=== PATIENT | male | born 1985 | race Caucasian/White ===

== ENCOUNTER 2020-01-11 19:14 | Emergency (ER) | payer OTHER, SELFPAY ==
[2020-01-11 19:10] VITALS: BP 145/109; PULSE 66; RESP 18; TEMP 37.3; O2SAT 94
--- NOTE | 2020-01-11 19:17 | ED.NAVMDI ---
HPI - Nausea/Vomiting/Diarrhea General Chief complaint: Nausea/Vomiting/Diarrhea Stated complaint: n/v History of Present Illness HPI Narrative: 34 yo male w/ h/o anxiety and depression BIBEMS for nausea and vomiting. He reports that he has been drinking heavily recently. He drinks most days. Frequently nearly 1/5 of liquor. He was drinking yesterday more heavily than usual and has been vomiting throughout the day today. The most recent episode of vomiting did include a small quantitiy of blood. He ia also feeling shakey and is concerned that he may be going into alcohol withdrawal. He has no h/o alcohol withdrawal. No abdominal pain, diarrhea, fever, weakness, SOB, dark stools. Related Data Home Medications Medication Instructions Recorded Confirmed buspirone mg 01/11/20 fluoxetine [Prozac] 10 mg PO DAILY 01/11/20 vortioxetine [Trintellix] 20 mg PO DAILY 01/11/20 Allergies Allergy/AdvReac Type Severity Reaction Status Date / Time sulfamethizole Allergy Unknown Nausea Verified 01/11/20 19:17 Review of Systems Review of Systems: All systems reviewed & are unremarkable except as noted in HPI and below Constitutional: Constitutional: Denies chills and Denies fever(s) ENT: Denies sore throat Cardiovascular: Cardiovascular: Denies chest pain Respiratory: Respiratory: Denies dyspnea Gastrointestinal: Gastrointestinal: Denies abdominal pain, Denies diarrhea, Reports nausea and Reports vomiting Musculoskeletal: Musculoskeletal: Denies back pain Neurologic: Denies syncope and Reports weakness Psychiatric: Psychiatric: Reports anxiety and Reports depression [facility] Past Medical History Medical History Anxiety Depression Family History Family History Father Malignant neoplasm of prostate, Onset Age: 50 Other Family history of cardiovascular disease Social History Social History Smoking status: Smoker, status unknown Alcohol intake: current Exam Const: General: healthy appearing, no acute distress and alert Orientation/consciousness: patient oriented x3 HENMT: Mouth: Yes dry mucous membranes Neck: Neck: normal visual inspection and no lymphadenopathy Chest: Chest palpation & inspection: no tenderness Resp: Effort & Inspection: normal respiratory effort Auscultation: clear to auscultation bilaterally, no rales, no rhonchi and no wheezes Cardio: Jugular venous distension: no JVD Rate: bradycardic Rhythm: regular rhythm Heart sounds: no murmurs GI: Inspection: non-distended GI Palp: Yes Soft to palpation and No Tenderness to palpation present (GI) Skin: General skin exam: normal color Neuro: General: patient oriented x3 and moves all extremities Speech: normal speech Other: mildly tremulous Extrem: General: no edema Psych: Appearance: well kempt Affect: normal affect Course Vital Signs Vital signs: Vital Signs Temperature 37.3 C 01/11/20 19:10 Pulse Rate 66 01/11/20 19:10 Respiratory Rate 18 01/11/20 19:10 Blood Pressure 145/109 H 01/11/20 19:10 Pulse Oximetry 94 01/11/20 19:10 Temperature 37.3 C 01/11/20 19:10 Pulse Rate 64 01/11/20 22:39 Respiratory Rate 21 H 01/11/20 22:39 Blood Pressure 130/104 H 01/11/20 22:39 Pulse Oximetry 98 01/11/20 22:39 MDM - Nausea/Vomiting/Diarrhea MDM Narrative Medical decision making narrative: No significant tremor and no tachycardia, so it is unlikely that he is truely in withdrawal. Symptoms more likely due to heavy alcohol use and dehydration. Improved with fluids. Tolerating Po Lab Data Result diagrams: 01/11/20 19:53 01/11/20 19:53 Labs: Lab Results 01/11/20 01/11/20 Range/Units 19:53 19:53 WBC 8.4 (4.5-10.0) K/mm3 RBC 5.31 (4.6-6.20) M/mm3 Hgb 16.7 (14.0-18.0) g/dL Hct 47.3
[2020-01-11] MEDS: DEXTROSE 5%/0.45% SOD CHL 1,000 ML 1000 ML IV CONT (19:45)
[2020-01-11] MEDS: ONDANSETRON INJ 4 MG/2 ML VIAL IV PUSH (19:46)
[2020-01-11 19:59] LABS: Basophils Percent Auto 0.5 % (0.2-1.2); Eosinophils Percent Auto 0.1 % (0-4.4); Hematocrit 47.3 % (42.0-52.0); Hemoglobin 16.7 g/dL (14.0-18.0); Immature Granulocyte Absolute 0.02 K/mm3 (0.00-0.031); Immature Granulocyte Percent A 0.2 % (0-0.5); Lymphocytes Absolute Auto 2.94 K/mm3 (0.9-3.2); Mean Corpuscular HGB Conc 35.3 g/dl (32-36); Mean Corpuscular Hemoglobin 31.5 pg (26-34); Mean Corpuscular Volume 89.1 fl (80-100); Mean Platelet Volume 10.1 fl (7.4-10.4); Monocytes Absolute Auto 0.5 K/mm3 (0.1-0.6); Monocytes Percent Auto 5.8 % (2.6-8.5); Neutrophils Absolute Auto 4.9 K/mm3 (1.3-6.7); Neutrophils Percent Auto 58.4 % (45.5-73.1); Platelet Count Result 220 k/mm3 (150-375); Red Blood Count 5.31 M/mm3 (4.6-6.20); Red Cell Distribution Width 12.7 % (11.5-14.5); White Blood Count 8.4 K/mm3 (4.5-10.0)
[2020-01-11 20:10] LABS: Alanine Aminotransferase 38 U/L (4-50); Albumin Level 4.3 g/dL (3.5-5.1); Alkaline Phosphatase 67 U/L (38-126); Anion Gap 13.8 mmol/L (7-16); Aspartate Amino Transferase 50 U/L (17-59); Bilirubin,Total 1.2 mg/dL (0.2-1.3); Blood Urea Nitrogen 17 mg/dL (9-20); Calcium 8.6 mg/dL (8.4-10.2); Carbon Dioxide 27 mmol/L (22-30); Chloride 101 mmol/L (98-107); Estimated CRCL calculation 125 ml/min; Estimated Glomerular Filt Rate > 60; Glucose 95 mg/dL (75-110); Lipase 171 U/L (23-300); Potassium 3.8 mmol/L (3.4-5.0); Sodium 138 mmol/L (137-145)
[2020-01-11 20:23] VITALS: BP 143/97; PULSE 57; RESP 15; O2SAT 98
[2020-01-11 20:50] VITALS: BP 128/87; PULSE 58; RESP 13; O2SAT 98
--- NOTE | 2020-01-11 20:51 | PC.NURSE ---
Snacks given for PO challeneged
[2020-01-11] MEDS: SODIUM CHLORIDE 0.9% IV 1,000 ML 999 ML IV CONT (21:08)
--- NOTE | 2020-01-11 21:35 | PC.NURSE ---
No nausea or vomiting after having a snack
[2020-01-11 21:52] VITALS: BP 134/88; PULSE 55; RESP 15; O2SAT 95
--- NOTE | 2020-01-11 22:25 | PC.NURSE ---
Pt was asking about assisstance on getting a ride home. I spoke with [employer] charge hand who state no cab vouchers were available. I gave this information to pt and asked him to start looking for a ride home. Pt had a cell phone of his own.
[2020-01-11 22:39] VITALS: BP 130/104; PULSE 64; RESP 21; O2SAT 98
== END 2020-01-11 22:41 | disposition home or self-care (01) ==
PROVIDERS: Emergency Provider Emergency Medicine; PCP Family Medicine
DX: R11.2 Nausea with vomiting, unspecified (principal); F41.9 Anxiety disorder, unspecified; F32.9 Major depressive disorder, single episode, unspecified
CPT/HCPCS: 36415; 80053; 83690; 85025; 96361; 96374; 99284; J2405; J7030

== ENCOUNTER 2020-05-14 08:46 | Outpatient (CLI) | payer OTHER, SELFPAY ==
--- NOTE | 2020-06-04 03:53 | WPDHOMESLEEP ---
Sleep Study - Home Unattended Date of Study: 05/15/20 Ordering Provider: Guy Ruvalcaba MD Interpreting Physician: Rehana Zapata MD Home Sleep Study Type: Watch PAT Height: 1.8 m Weight: 105.233 kg Body Mass Index: 32.3 Neck Circumference (inches): 17 [place]: 13 Reason for Sleep Study Loud snoring, gasping at night, hypersomnolence prior sleep study 10/20/2016 with optimal pressure of 7 cm water pressure at [facility] in [place]. Sleep History Savage Hanks is a 34 year-old man with a history of loud snoring and gasping at night. he had a prior sleep study in 2017 with [facility] and an optimal pressure of 7 cm water pressure. He said that he was not allowed to get a CPAP, and he is being tested again because he is trying to get treatment with CPAP. He has low energy and is drowsy throughout the daytime. Consult was snores loudly enough so others complain about it. He does not awaken at night with heartburn. He occasionally with her sleep feeling short of breath. Occasionally has trouble sleep with a cold, occasionally wakes up gasping for breath at night. He rarely has breathing problems at night observed by others. He occasionally sweats excessively at night. He rarely notices his heart pounding or beating irregularly at night. He is never afraid to go to sleep. Rarely has nightmares. Occasionally recalls dreams, rarely has racing thoughts, depression, sadness or anxiety. Frequently has muscular tension. He rarely kicks at night, never has crawly or achy feelings in his legs at night, does not wake iwth morning jaw pain, occasionally grinds his teeth at night, occasionally is bothered by pain in the day. He is rarely awakened by pain at night. Rarely wakes up feeling stiff in jayla morning with sore achy muscles. He has fatigue. Bedtime: 10:00 pm, falss asleep quickly, does not wake in the night, and if he does it is to toss and turn. He wakes in the morning at 6-7 am. Weekends, he goes to bed at 11 pm, wakes between 9-10 am. Sometimes takes a nap, but naps are not refreshing. He is drowsy in the am for 3 or more hours. HE feels better in the evening compared to other times of day. Habits: Previously smoked. Caffeine 3-5 per day. No alcohol or recreational drugs. [facility] Past Medical History Medical History (Updated 06/04/20 @ 08:36 by Rehana Zapata MD) Anxiety Depression Obstructive sleep apnea TIA (transient ischemic attack) Family History Family History Father Malignant neoplasm of prostate, Onset Age: 50 Other Family history of cardiovascular disease Social History Social History Smoking status: Former smoker Tobacco type: e-cigarettes/vaping Alcohol intake: current Medications Home Medications Medication Instructions Recorded Confirmed Type buspirone mg 01/11/20 03/26/20 History fluoxetine [Prozac] 10 mg PO DAILY 01/11/20 03/26/20 History vortioxetine [Trintellix] 20 mg PO DAILY 01/11/20 03/26/20 History Sleep Procedure The sleep study was completed using [employer] a technically adequate device with seven channels: peripheral arterial tone, actigraphy, body position, snore, respiratory movement, pulse oximetry, sleep staging, and heart rate. Prior to using the device, the patient received verbal and written instructions for its application and was provided with the help desk phone number for additional telephonic instruction with 24-hour availability of qualified personnel to answer questions. Sleep Architecture The recording time is 8 hr 18 minutes. The sleep time is 7 hr 4 minutes. REM comprised 31% of the night. He spent 48% of the night in light sleep and 20% of the night in deep sleep. Sleep latency was 20 minutes, and REM latency was short oat 63 minutes. He had 13 awakenings after sleep onset. Sleep efficiency was 85%. The supine AHi was significantly higher at 20.6. Asael gerardo
[2020-06-04 08:41] VITALS: BMI 32.3
== END 2020-05-14 08:47 | disposition home or self-care (01) ==
LOC: ANHCSM 08:46
PROVIDERS: PCP Family Medicine; Visit Provider Family Medicine
DX: G47.33 Obstructive sleep apnea (adult) (pediatric) (principal)
CPT/HCPCS: 95800

== ENCOUNTER → 2020-10-24 09:10 | Outpatient (CLI) | payer OTHER, SELFPAY ==
[2020-10-24 20:20] LABS: SARS-CoV-2 RNA PCR Positive
== END ==
PROVIDERS: PCP Family Medicine; Visit Provider Physician Assistant
DX: U07.1 COVID-19 (principal)
CPT/HCPCS: C9803; U0003; U0005